=== PATIENT | female | born 1955 | race Caucasian/White ===

== ENCOUNTER → 2025-02-11 | Outpatient (CLI) | payer MEDICARE, MEDICAID, SELFPAY ==
--- NOTE | 2025-02-11 09:19 | XR_ITS ---
Examination: CT abdomen, without intravenous contrast. CT pelvis, without intravenous contrast. CT abdomen, with intravenous contrast. CT pelvis, with intravenous contrast. 2-D sagittal coronal reconstructions. Date and time of exam:February 03, 2025 1149 hours Comparison June 22, 2024 INDICATIONS: Left lower abdominal pain beginning December 2024, history urinary tract infections CTDI: vol (mGy) 12.7 DLP: (mGycm) 595 Technique: Multiple 3.0 axial images of the abdomen and pelvis without intravenous contrast, 3.0 mm slice thickness. Multiple 3.0 postcontrast images abdomen and pelvis also obtained, post intravenous injection 60 cc [id number] 2-D sagittal coronal reconstructions 3-D reconstructions Low dose protocols, adjustment MA KV according to patient's size FINDINGS: There is diffuse fatty infiltration throughout the liver Contracted gallbladder Spleen is not enlarged No pancreatic or adrenal mass 2 mm right renal calculus image 77, no hydronephrosis or ureteral calculi Aorta normal size No bowel obstruction Normal appendix No diverticulitis No pelvic mass Urinary bladder intact Grade 1 anterolisthesis L4 on L5 Advanced degenerative disc disease L2-L3, L5-S1 Moderate narrowing hip joints IMPRESSION: 2 mm nonobstructing right renal calculus No hydronephrosis or ureteral calculi Normal appendix No bowel obstruction or diverticulitis
== END | disposition home or self-care (01) ==
LOC: CCTX 09:05
PROVIDERS: PCP Emergency Medicine; Referring Provider Emergency Medicine; Visit Provider Emergency Medicine
DX: N20.0 Calculus of kidney (principal)
CPT/HCPCS: 74178; A4649; Q9963; Q9967